=== PATIENT | female | born 1950 ===

== ENCOUNTER 2021-09-22 17:13 | Emergency (ER) | payer MEDICARE ==
[~2021-09-22] VITALS: Ht 157.5 cm; Wt 66.4 kg
[2021-09-22 17:57] VITALS: TEMP 98.4
[2021-09-22 18:45] LABS: COLLECTION METHOD CLEAN CATCH
[2021-09-22 19:00] LABS: MUCOUS Present (NOT PRESENT); PH 5 (5-8); SQUAMOUS EPITHELIAL 0-2 /hpf (0-10); URINE APPEARANCE Clear (CLEAR/HAZY); URINE BACTERIA None Seen /hpf (NONE SEEN); URINE BILIRUBIN Negative (NEGATIVE); URINE BLOOD Negative (NEGATIVE); URINE COLOR Yellow (YELLOW); URINE GLUCOSE 3+ (NEGATIVE); URINE KETONE Negative (NEGATIVE); URINE LEUKOCYTE ESTERASE Negative (NEGATIVE); URINE NITRATE Negative (NEGATIVE); URINE PROTEIN(semi-quant) Negative (NEGATIVE); URINE RBC 0-2 /hpf (0-2); URINE UROBILINOGEN Negative (NEGATIVE)
[2021-09-22 21:14] LABS: BASO # 0.1 K/mm3 (0.0-0.2); BASO % 0.7 % (0.0-2.0); EOS # 0.1 K/mm3 (0.0-0.7); EOS % 1.5 % (0.0-4.0); GRAN # 4.5 K/mm3 (1.4-6.5); GRAN % 60.6 % (42.2-75.2); HEMATOCRIT 39.4 % (37.0-47.0); HEMOGLOBIN 12.5 g/dl (12.5-16.0); LYMPH # 2.3 K/mm3 (1.2-3.4); MEAN CELL VOLUME 87 fl (80.0-100.0); MEAN CORPUSCULAR HEMOGLOBIN 28 pg (27-31); MEAN CORPUSCULAR HGB CONC 32 g/dl (33.0-37.0); MEAN PLATELET VOLUME 9.9 fl (7.4-10.4); MONO # 0.5 K/mm3 (0.1-0.6); MONO % 6.9 % (1.7-9.3); PLATELET COUNT 293 K/mm3 (130-400); RED BLOOD COUNT 4.51 M/mm3 (4.10-5.30); REDCELL DISTRIBUTION WIDTH-CV 15.5 % (11.5-14.5)
[2021-09-22] MEDS ORDERED: DIFLUCAN150 MG PO (21:46)
[2021-09-22] MEDS ORDERED: MACROBID 1100 MG/CAP PO (21:46)
[2021-09-22 21:53] LABS: BILIRUBIN,TOTAL 0.3 mg/dL (0.2-1.2); CALCIUM 9.3 mg/dL (8.4-10.2); CREATININE, serum 0.95 mg/dL (0.57-1.11); POTASSIUM 3.8 mmol/L (3.5-4.5); TOTAL PROTEIN 7.9 gm/dL (6.2-8.1)
[2021-09-22 22:42] VITALS: BP 153/89; PULSE 78
== END 2021-09-22 22:42 | disposition home or self-care (01) ==
LOC: COL.ER 17:13
PROVIDERS: Nurse Practitioner Family
DX: N39.0 Urinary tract infection, site not specified (principal)

== ENCOUNTER 2022-01-30 22:11 | Emergency (ER) | payer MEDICARE ==
[~2022-01-30] VITALS: Ht 157.5 cm; Wt 62.3 kg
[~2022-01-30 22:11] MED LIST: DIFLUCAN150 MG PO; MACROBID 1100 MG/CAP PO
[2022-01-30 22:20] VITALS: TEMP 97.2
[2022-01-30 23:58] VITALS: BP 154/78; PULSE 76
== END 2022-01-30 23:58 | disposition home or self-care (01) ==
LOC: COL.ER 22:11
DX: R51.9 Headache, unspecified (principal); I10 Essential (primary) hypertension; Z28.310 Unvaccinated for COVID-19

== ENCOUNTER 2022-02-07 22:47 | Emergency (ER) | payer MEDICARE ==
[~2022-02-07] VITALS: Ht 157.5 cm; Wt 62.5 kg
[2022-02-07 22:49] VITALS: TEMP 98.4
[2022-02-07 23:41] LABS: BASO # 0.1 K/mm3 (0.0-0.2); BASO % 0.7 % (0.0-2.0); EOS # 0.1 K/mm3 (0.0-0.7); GRAN # 7.4 K/mm3 (1.4-6.5); GRAN % 71.6 % (42.2-75.2); HEMATOCRIT 38.9 % (37.0-47.0); HEMOGLOBIN 12.6 g/dl (12.5-16.0); LYMPH % 19.6 % (20.0-51.0); MEAN CELL VOLUME 87 fl (80.0-100.0); MEAN CORPUSCULAR HEMOGLOBIN 28 pg (27-31); MEAN CORPUSCULAR HGB CONC 32 g/dl (33.0-37.0); MEAN PLATELET VOLUME 10.6 fl (7.4-10.4); MONO # 0.7 K/mm3 (0.1-0.6); MONO % 6.9 % (1.7-9.3); PLATELET COUNT 298 K/mm3 (130-400); RED BLOOD COUNT 4.48 M/mm3 (4.10-5.30); REDCELL DISTRIBUTION WIDTH-CV 15.6 % (11.5-14.5)
[2022-02-08 00:03] LABS: BILIRUBIN,TOTAL 0.3 mg/dL (0.2-1.2); CALCIUM 9.3 mg/dL (8.4-10.2); CREATININE, serum 0.94 mg/dL (0.57-1.11); TOTAL PROTEIN 7.6 gm/dL (6.2-8.1)
[2022-02-08 00:09] LABS: COLLECTION METHOD CLEAN CATCH
[2022-02-08 00:24] LABS: URINE APPEARANCE Clear (CLEAR/HAZY); URINE BLOOD TRACE-INTACT (NEGATIVE); URINE COLOR Yellow (YELLOW); URINE GLUCOSE 2+ (NEGATIVE); URINE KETONE Negative (NEGATIVE); URINE NITRATE Negative (NEGATIVE); URINE PROTEIN(semi-quant) Negative (NEGATIVE); URINE UROBILINOGEN 0.2 E.U/dL (0.2-1.0)
[2022-02-08 00:31] LABS: SQUAMOUS EPITHELIAL 0-2 /hpf (0-10); URINE BACTERIA None Seen /hpf (NONE SEEN); URINE RBC None Seen /hpf (0-2)
[2022-02-08] MEDS ORDERED: PEPCID 20MG TAB20 MG PO (00:55)
[2022-02-08 01:17] VITALS: BP 133/83; PULSE 70
== END 2022-02-08 01:19 | disposition home or self-care (01) ==
LOC: COL.ER 22:47
PROVIDERS: Emergency Medicine
DX: R10.13 Epigastric pain (principal); Z20.822 Contact with and (suspected) exposure to COVID-19